=== PATIENT | male | born 1975 | race Caucasian/White ===

== ENCOUNTER 2024-08-13 11:34 | Outpatient (REF) | payer MEDICAID, SELFPAY ==
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
--- OUTSIDE RECORDS SUMMARY | 2024-08-13 14:02 | XMS_ITS | Encounter Summary ---
Author Organization [facility] Address [address] [place] [address] Care Team Providers Care Manager Cost Name Role Phone Faina Uribe Primary Care Provider + [phone] Reason for Referral * Surgical (Routine) - Authorized Specialty Diagnoses / Procedures Referred By Bettye quiñonez Referred To Contact General Surgery Diagnoses Abdominal wall hernia Umbilical hernia without obstruction and without gangrene Faina Uribe [address] [place] [address] Phone: tel: fax: [facility] [address] [place] [address] Phone: tel: fax: Referral ID Status Reason Start Date Expiration Date Visits Requested Visits Authorized [id number] Authorized Specialty Services Required 05/14/2024 11/13/2025 6 6 Encounter Details Date Type Department Care Team (Late st Contact Info) Description 05/14/2024 Transcribe Orders [facility] Physician Referral Services [address] [place] [address] Faina Uribe [address] [place] [address] Abdominal wall hernia (Primary Dx); Umbilical hernia without obstruction and without gangrene Social History Tobacco Use Types Packs/Day Years Used Date Smoking Tobacco: Never Assessed Sex and Gender Information Value Date Recorded Sex Assigned at Male 05/23/2024 1:22 PM EST Legal Sex Male 3:13 PM EST Gender Identity Not on file Sexual Orientation Not on file documented as of this encounter Plan of Treatment Upcoming Encounters Date Type Department Care Team ([facility] st Contact Info) Description 12/12/2024 8:20 AM EDT Office Visit [facility] [address] [place] [address] [phone] Cardiac Rn: Bill Whalen Jr., MD [address] [place] [phone] Scheduled Referrals Name Type Priority Associated Diagnoses Orde r Schedule Ambulatory referral to General Surgery Outpatient Referral Routine Abdominal wall hernia Umbilical hernia without obstruction and without gangrene Expected: 05/14/2024, Expires: 11/11/2024 documented as of this encounter Visit Diagnoses Diagnosis Abdominal wall hernia- Primary Unspecified ventral hernia without mention of obstruction or gangrene Umbilical hernia without obstruction and without gangrene documented in this encounter Care Teams Manager Cost Relationship Specialty Start Date End Date Faina Uribe [address] [place] [id number] PCP - General Internal Medicine 05/14/24 documented as of this encounter
--- OUTSIDE RECORDS SUMMARY | 2024-08-13 14:02 | XMS_ITS | Referral Summary ---
Author Organization [facility] Address [address] [place] [address] Care Team Providers Care Buckle Stapler Name Role Phone Faina Uribe Primary Care Provider + [phone] Encounters Date Type Department Care Team Description 05/23/2024 1:30 PM EST Office Visit [facility] [address] [place] [address] [phone] Collection Systems Technician: Bill Whalen Jr., MD Abdominal wall bulge (Primary Dx) from Last 3 Months Allergies No known active allergies Medications No known medications Social History Tobacco Use Types Packs/Day Years Used Date Smoking Tobacco: Never Assessed Sex and Gender Information Value Date Recorded Sex Assigned at Male 05/23/2024 1:22 PM EST Legal Sex Male 3:13 PM EST Gender Identity Not on file Sexual Orientation Not on file Last Filed Vital Signs Vital Sign Reading Time Taken Comments Blood Pressure 147/78 05/23/2024 1:31 PM EST Pulse 80 05/23/2024 1:31 PM EST Temperature 35.9 ??C (96.7 ??F) 05/23/2024 1:31 PM ES T Respiratory Rate - - Oxygen Saturation - - Inhaled Oxygen Concentration - - Weight 106.7 kg (235 lb 3.7 oz) 05/23/2024 1:31 PM EST Height - - Body Mass Index - - Plan of Treatment Upcoming Encounters Date Type Department Care Team (Late st Contact Info) Description 12/12/2024 8:20 AM EDT Office Visit [facility] [address] [phone] Collection Systems Technician: Bill Whalen Jr., MD [address] [place] [phone] Insurance [place] HSNO/FREE CARE Care Teams Buckle Stapler Relationship Specialty Start Date End Date Faina Uribe [address] [place] [phone] PCP - General Internal Medicine 05/14/24
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
--- OUTSIDE RECORDS SUMMARY | 2024-08-13 14:02 | XMS_ITS | Encounter Summary ---
Author Organization [employer] Address [address] 7[address] [place] [address] Care Team Providers Care Pit Shoveler Name Role Phone Emile Dias MD Primary Care Prov ider Encounter Details Date Type Department Care Team (Latest Contact Info) Description 08/13/2024 Travel Social History Tobacco Use Types Packs/Day Years Used Date Smoking Tobacco: Every Day Cigarettes 0.3 3.3 Started: 2021 Passive Smoke Exposure: Never Smokeless Tobacco: Never Alcohol Use Standard Drinks/Week Comments Never 0 [...] PM EDT documented as of this encounter Plan of Treatment Upcoming Encounters Date Type Department Care Team (Late st Contact Info) Description 10/27/2024 9:30 AM EDT Office Visit [facility] CHC MED & PEDS [address] [place] [address] Emile Dias MD [address] [place] [address] documented as of this encounter Visit Diagnoses Not on filedocumented in this encounter Additional Health Concerns Assessment Noted Time PHQ-9 Depression Total Score: 0 08/14/19 11:04 AM EDT documented as of this encounter Care Teams Pit Shoveler Relationship Specialty Start Date End Date Emile Dias MD [address] [place] [address] PCP - General Internal Medicine 08/13/24 documented as of this encounter
--- OUTSIDE RECORDS SUMMARY | 2024-08-13 14:02 | XMS_ITS | Clinical Summary ---
Author Organization [facility] Address [address] [place] [address] Care Team Providers Care Deburr Technician Name Role Phone Faina Uribe Primary Care Provider + [phone] Allergies No known active allergies Medications No known medications Encounters Date Type Department Care Team Description 05/23/2024 1:30 PM EST Office Visit [facility] [address] [place] [address] [phone] Car Painter: Bill Whalen Jr., MD Abdominal wall bulge (Primary Dx) from Last 3 Months Social History Tobacco Use Types Packs/Day Years [...] Description 12/12/2024 8:20 AM EDT Office Visit [facility] [address] [place] [address] [phone] Car Painter: Bill Whalen Jr., MD [address] [place] [phone] Health Maintenance Due Date Last Done Comments Silverrd 1977 Colon Cancer Screening 1977 Colonoscopy 1977 FOBT / Fit Test 1977 HIV Screening 1977 Hepatitis C Screening 1977 Sigmoidoscopy 1977 Hepatitis B Vaccines (1 of 3 - 19+ 3-dose series) 1996 COVID-19 Vaccine (2023- season) 2023 03/02/2022, 03/10/2021, 08/18/2020, Additional history exists Alcohol/Substance Use Screening 04/23/2024 Depression Screening and Follow-Up 04/23/2024 Social [employer] Annual Screening 04/23/2024 Influenza Vaccine (Season Ended) 2024 04/08/2021 DTaP,Tdap,and Td Vaccines (2 - Td or Tdap) 09/11/2033 09/12/2023 RSV Vaccine (60+ years old and patients) (1 - 1-dose 75+ series) 2052 Pneumococcal Vaccine: Pediatric (0-5 Years) and At-Risk Patients (6-50 Years) Aged Out No longer eligible based on patient's age to complete this topic Insurance [facility] HSNO/FREE CARE Care Teams Deburr Technician Relationship Specialty Start Date End Date Faina Uribe [address] [place] [address] PCP - General Internal Medicine 05/14/24
[2024-08-13 14:11] LABS: MANUAL DIFF FLAG NO
[2024-08-13 14:24] LABS: Estimated Average Glucose 126 mg/dL; Total Hemoglobin (HGBA1C) 3655.8429 umol/L
[2024-08-13 14:33] LABS: Alanine Aminotransferase 52 U/L (0-40); Albumin Level 4.3 g/dL (3.5-5.0); Alkaline Phosphatase 62 U/L (39-117); Anion Gap 9 (12-20); Aspartate Amino Transferase 37 U/L (5-37); Basophils Absolute Auto 0.1 X10*3/uL (0.0-0.2); Basophils Percent Auto 1.1 % (0-2); Bilirubin Total 0.4 mg/dL (0.0-1.0); Blood Urea Nitrogen 12 mg/dL (9-16); Calcium 9.3 mg/dL (8.4-10.2); Carbon Dioxide 27 mmol/L (22-29); Chloride 107 mmol/L (96-108); Cholesterol 226 mg/dL (<200); Eosinophils Absolute Auto 0.2 X10*3/uL (0.0-0.4); Eosinophils Percent Auto 2.2 % (0-4); Estimated Glomerular Filt Rate > 60; Glucose Random 104 mg/dL (60-115); HDL Cholesterol 44 mg/dL (>40); Hemoglobin 13.7 g/dl (14.0-18.0); Imm Gran Abs Auto 0.06 X10*3/uL (0.00-0.03); Imm Gran Pct Auto 0.6 % (0.0-0.4); LDL Cholesterol Calculated 129 mg/dL (<100); Lymphocytes Absolute Auto 3.1 X10*3/uL (1.2-4.9); Lymphocytes Percent Auto 33.4 % (20-40); Mean Corpuscular HGB Conc 33.4 g/dl (31.0-36.0); Mean Corpuscular Volume 89.7 fL (80.0-98.0); Mean Platelet Volume 11.4 fL (9.4-12.4); Monocytes Absolute Auto 0.7 X10*3/uL (0.1-1.2); Monocytes Percent Auto 7.5 % (2-11); Neutrophils Absolute Auto 5.2 x10*3/uL (2.0-8.3); Neutrophils Percent Auto 55.2 % (45-73); Platelet Count 197 X10*3/uL (160-400); Potassium 3.5 mmol/L (3.3-5.1); Red Blood Count 4.57 X10*6/uL (4.60-5.80); Red Cell Distribution Width 13.3 % (11.0-16.0); Sodium 139 mmol/L (135-145); Total Protein 7.5 g/dL (6.5-8.0); Triglycerides 268 mg/dL (<150); White Blood Count 9.4 X10*3/uL (4.8-10.8)
[2024-08-13 14:52] LABS: TSH reflex Free T4 1.11 uIU/mL (0.32-4.0)
[2024-08-14 04:00] LABS: HIV AB/AG Nonreactive (Nonreactive); HIV Num 1 0.06 S/CO (0.00-0.99); ~HepC Num1 0.28 S/CO (0.00-0.79); ~Hepatitis C Antibody Nonreactive (Nonreactive)
== END 2024-08-13 11:35 | disposition home or self-care (01) ==
LOC: HO.CHCLDS 11:34
PROVIDERS: Visit Provider Internal Medicine
DX: Z00.00 Encounter for general adult medical examination without abnormal findings (principal); Z11.4 Encounter for screening for human immunodeficiency virus [HIV]; Z13.1 Encounter for screening for diabetes mellitus; Z11.59 Encounter for screening for other viral diseases; Z13.220 Encounter for screening for lipoid disorders; Z13.29 Encounter for screening for other suspected endocrine disorder
CPT/HCPCS: 36415; 80053; 80061; 83036; 84443; 85025; 86803; 87389